=== PATIENT | female | born 1990 ===

== ENCOUNTER 2017-07-10 09:45 | Emergency (ER) | payer BC, SELFPAY ==
[2017-07-10 10:21] LABS: Hemoglobin 14.3 g/dL (12.0-16.0); Mean Corpuscular HGB CONC 34.9 g/dL (32.0-36.0); Mean Corpuscular Hemoglobin 31.4 pg (27.0-31.0); Mean Platelet Volume 8.2 fL (7.4-10.4); Platelet Count 155 thou/uL (130-400); RBC Distribution Width 11.4 % (11.5-14.5); Red Blood Cell (RBC) Count 4.55 mill/uL (4.20-5.40); White Blood Cell (WBC) Count 5.1 thou/uL (4.8-10.8)
[2017-07-10 10:35] LABS: ALT (SGPT) 51 U/L (8-55); AST (SGOT) 41 U/L (5-34); Albumin 4.2 g/dL (3.5-5.0); Alkaline Phosphatase 56 U/L (40-150); Anion Gap 15 mmol/L (10-20); BUN (Urea Nitrogen) 9 mg/dL (7.0-18.7); Bilirubin, Total 0.6 mg/dL (0.2-1.2); Calc. Creatinine Clearance 0 mL/min (70-130); Calcium 9.4 mg/dL (7.8-10.44); Carbon Dioxide 19 mmol/L (22-29); Chloride 103 mmol/L (98-107); Estimated GFR-MDRD Greater than 90; Globulin 2.8 g/dL (2.4-3.5); Glucose 152 mg/dL (70-105); Potassium 3.9 mmol/L (3.5-5.1); Sodium 133 mmol/L (136-145)
[2017-07-10 10:36] LABS: Band 14 % (5-11); Lymphocytes 17 % (21-51); MDiff Complete? YES; Monocytes 10 % (0-10); Neutrophil 56 % (42-75); RBC Morphology Normal; Reactive Lymphocytes 2 % (0-10)
[2017-07-10 10:58] LABS: Bilirubin Negative (Negative); Blood, Urine Negative (Negative); Clarity CLEAR (Clear); Glucose, Urine (Dipstick) Negative (Negative); Leukocyte Negative (Negative); Nitrite Negative (Negative); Protein, Urine (Dipstick) 30 mg/dL (Neg-Trace); Specific Gravity, Urine 1.021 (1.002-1.036); Urobilinogen 0.2 mg/dL (0.2-1.0); pH, Urine 8.5 (5.0-9.0)
[2017-07-10 10:59] LABS: Pregnancy Test - Urine (BHCG) Negative (Negative); Pregu Control Background? CLEAR/WHITE (CLR/WHITE); Pregu Control Bar Appear? YES (CONTROL BAR); Specific Gravity 1.021 (1.002-1.036)
[2017-07-10 11:00] LABS: Bacteria/HPF Rare-Few HPF (None Seen); Hyaline Casts/LPF 0-3 HYALINE CAST LPF (0-3 Hyaline); Pathc Cast-AUWi Flag 0.58 (0-2.49); RBC/HPF 0-3 HPF (0-3); WBC/HPF 0-3 HPF (0-3)
[2017-07-10 11:13] LABS: Yeast-AUWi Flag 28.1 (0-25.0)
[2017-07-10 11:15] LABS: Yeast-All Forms None Seen HPF (None Seen)
[2017-07-10] MEDS ORDERED: Ondansetron ODT 4 MG TAB ONE (11:37)
--- NOTE | 2017-07-10 11:41 | RAD ---
RIGHT FOOT 3 VIEWS: History Right foot pain. FINDINGS: Lisfranc joint alignment is anatomic. Plantar arch is maintained. Well-corticated ossific fragment lies just superior to the base of the navicular on the lateral view and is favored to represent a sec ondary ossification center. No acute finding, dislocation, aggressive osseous erosions, or soft tiss ue gas are apparent. IMPRESSION: No acute osseous abnormalities are demonstrated. POS: [facility]
== END 2017-07-10 12:56 | disposition home or self-care (01) ==
LOC: ERS 09:45
DX: L84 Corns and callosities (principal); M54.9 Dorsalgia, unspecified; R73.9 Hyperglycemia, unspecified
CPT/HCPCS: 36415; 80053; 81003; 81015; 81025; 85025; Q0162

== ENCOUNTER 2018-01-12 23:49 | Emergency (ER) | payer SELFPAY ==
[2018-01-13 00:51] LABS: #Basophils 0.1 thou/uL (0.0-0.2); #Eosinphils 0.2 thou/uL (0.0-0.7); #Lymphocytes 4.9 thou/uL (1.20-3.40); #Neutrophils 8.3 thou/uL (1.40-6.50); %Basophils 0.4 % (0.0-1.0); %Eosinophils 1.6 % (0.0-10.0); %Monocytes 6.6 % (0.0-10.0); %Neutrophils 57.4 % (42.0-75.0); Hemoglobin 16.2 g/dL (12.0-16.0); Mean Corpuscular HGB CONC 34.8 g/dL (32.0-36.0); Mean Corpuscular Hemoglobin 31.5 pg (27.0-31.0); Mean Corpuscular Volume 90.7 fL (78.0-98.0); Mean Platelet Volume 8.7 fL (7.4-10.4); Platelet Count 243 thou/uL (130-400); RBC Distribution Width 11.1 % (11.5-14.5); Red Blood Cell (RBC) Count 5.15 mill/uL (4.20-5.40); White Blood Cell (WBC) Count 14.4 thou/uL (4.8-10.8)
[2018-01-13] MEDS ORDERED: Ketorolac Tromethamine 30 MG/ML VIAL ONE (00:59)
[2018-01-13 01:15] LABS: ALT (SGPT) 58 U/L (8-55); AST (SGOT) 24 U/L (5-34); Albumin 4.7 g/dL (3.5-5.0); Alkaline Phosphatase 88 U/L (40-150); Anion Gap 17 mmol/L (10-20); BUN (Urea Nitrogen) 11 mg/dL (7.0-18.7); Bilirubin, Total 0.4 mg/dL (0.2-1.2); Calc. Creatinine Clearance 0 mL/min (70-130); Calcium 10.4 mg/dL (7.8-10.44); Carbon Dioxide 23 mmol/L (22-29); Chloride 99 mmol/L (98-107); Estimated GFR-MDRD 83; Globulin 3.5 g/dL (2.4-3.5); Glucose 320 mg/dL (70-105); Protein, Total 8.2 g/dL (6.0-8.3); Sodium 135 mmol/L (136-145)
[2018-01-13 01:58] LABS: Bilirubin Negative (Negative); Blood, Urine Negative (Negative); Clarity CLEAR (Clear); Glucose, Urine (Dipstick) >=1000 mg/dL (Negative); Leukocyte Negative (Negative); Nitrite Negative (Negative); Protein, Urine (Dipstick) Negative (Neg-Trace); Urobilinogen 0.2 mg/dL (0.2-1.0); pH, Urine 6.5 (5.0-9.0)
[2018-01-13 02:07] LABS: Pregnancy Test - Urine (BHCG) Negative (Negative); Pregu Control Background? CLEAR/WHITE (CLR/WHITE); Pregu Control Bar Appear? YES (CONTROL BAR)
== END 2018-01-13 02:30 | disposition home or self-care (01) ==
LOC: ERS 23:49
DX: S23.3XXA Sprain of ligaments of thoracic spine, initial encounter (principal); E11.65 Type 2 diabetes mellitus with hyperglycemia; X50.1XXA Overexertion from prolonged static or awkward postures, initial encounter
CPT/HCPCS: 80053; 81003; 81025; 83690; 85025; 96361; 96374; J1885

== ENCOUNTER 2018-09-09 07:46 | Outpatient (CLI) | payer OTHER ==
--- NOTE | 2018-09-09 08:56 | ULT ---
EXAM: Pelvic ultrasound HISTORY: Pelvic pain COMPARISON: None TECHNIQUE: Multiple grayscale and color Doppler images were obtained in a transabdominal and transvag inal pelvic ultrasound. Spectral analysis of the Doppler waveforms of the ovaries were performed. FINDINGS: CERVIX: No evidence of nabothian cysts. UTERUS: Normal in size without focal abnormality. ENDOMETRIAL STRIPE: 13 mm. A small amount of free fluid is seen in the pelvis. RIGHT OVARY: Normal flow without focal mass. LEFT OVARY: Normal flow without focal mass. IMPRESSION: No significant pelvic abnormality
== END 2018-09-09 07:47 | disposition home or self-care (01) ==
LOC: BICULT 07:46
DX: R10.2 Pelvic and perineal pain (principal); N92.0 Excessive and frequent menstruation with regular cycle
CPT/HCPCS: 76856